=== PATIENT | female | born 1990 | race Caucasian/White ===

== ENCOUNTER 2023-02-18 09:14 | Emergency (ER) | payer MEDICARE, OTHER, MEDICAID, SELFPAY ==
--- NOTE | ~2023-02-18 | CT_ITS ---
EXAMINATION: CT ABDOMEN AND PELVIS WITH CONTRAST CLINICAL INFORMATION: Left lower quadrant pain with bloody stools COMPARISON: None available. TECHNIQUE: Multidetector volumetric images were obtained from the superior aspect of the liver through the pubic symphysis following administration 85 mL of Omnipaque 350 intravenous contrast. Sagittal and coronal reformatted images were obtained on the technologist's workstation. Oral contrast: No This CT examination was performed using dose optimization techniques as appropriate, variously including the following: *Automated exposure control *Adjustment of mA and/or kV according to patient size (this includes techniques or standardized protocols for targeted exams where dose is matched to indication/reason for exam; i.e. extremities or head) *Use of iterative reconstruction technique DLP: 716 mGy-cm FINDINGS: LUNG BASES: Bibasilar atelectasis is present LIVER, GALLBLADDER, AND BILIARY TREE: The liver is normal in size, shape, and attenuation. No focal hepatic lesion or biliary ductal dilatation is present. The gallbladder is unremarkable with no evidence of radiopaque gallstones, gallbladder wall thickening, or obvious pericholecystic inflammatory changes. PANCREAS: Unremarkable. SPLEEN: Unremarkable. ADRENAL GLANDS: Unremarkable. KIDNEYS AND URETERS: The kidneys are normal in size, shape, and attenuation. No hydronephrosis, hydroureter, or calculi seen. No perinephric stranding. BLADDER: Unremarkable. GASTROINTESTINAL TRACT: There is thickening and slightly increased enhancement of the colonic mucosa most prominent in the descending and sigmoid colon colon. Multiple small pericolonic lymph nodes are present in the mesentery around the colon the largest measuring only about 6 mm in short axis dimension. No significant diverticular disease is present. The small bowel is unremarkable. The appendix appears normal. ABDOMINAL WALL: No significant hernia is appreciated. LYMPH NODES: Normal. VASCULAR: Unremarkable. PELVIC VISCERA: An anteverted uterus is present. A large calcified mass is present in the right adnexa measuring 3.2 x 2.8 x 3.4 cm that is related to the periphery. The left ovary appears normal (3:66). OSSEOUS STRUCTURES: Unremarkable. CT/CT abdomen pelvis w IV con IMPRESSION: 1. Thickening and increased enhancement of the colonic mucosa most prominent in the descending and sigmoid colon with multiple small surrounding pericolonic lymph nodes. Findings are suggestive of colitis. 2. Large calcified mass in the right adnexa. This could be a calcified ovarian mass. Elective pelvic transabdominal and endovaginal ultrasound could be performed for further evaluation to verify that this is indeed ovarian. Fleischner guidelines were followed.
[2023-02-18 09:25] VITALS: BP 120/72; PULSE 111; RESP 18; TEMP 37.1; O2SAT 98; BMI 38.0
--- NOTE | 2023-02-18 10:28 | ED.ABDPAIN ---
HPI - Abdominal Pain General Chief Complaint: Abdominal Pain Stated Complaint: abd pain/ hemorrhoids Time Seen by Provider: 02/18/23 09:48 Source: patient Mode of arrival: ambulatory Limitations: no limitations History of Present Illness HPI narrative: 32 yo female with no sig PMH notes increasing LLQ pain x 3 days with some loose bloody stools and hemorrhoids that have been bothering her x 1 week, tried topical therapy without relief. No hx of inflammatory bowel disease or diverticulitis. No hx of bloody stools. Notes blood is on toilet paper and stool. She denies travel/abx use. No fevers. MD elicited complaint: abdominal pain Pertinent past history: none Onset (ago): day(s) (3) Pain Consistency: intermittent Location: LLQ Severity: moderate Quality: cramping Radiation: none Migration to: no migration Exacerbating factors: nothing Relieving factors: nothing Associated symptoms: diarrhea and hematochezia Related Data Previous Rx's Medication Instructions Recorded morphine 15 mg immediate release 15 mg PO TID PRN pain #10 tabs 02/18/23 tablet ondansetron 4 mg disintegrating 4 mg PO Q8H PRN nausea and 02/18/23 tablet vomiting #20 tabs Allergies Allergy/AdvReac Type Severity Reaction Status Date / Time bismuth subsalicylate AdvReac Vomiting Verified 02/18/23 09:25 [From Pepto-Bismol] seafood AdvReac Vomiting Verified 02/18/23 09:25 Review of Systems Review of Systems Constitutional : No Weight loss, No Fever, No Chills ENT/Mouth : No sore throat, No Rhinorrhea Eyes: No Swelling, No Redness Cardiovascular : No Chest Pain, No SOB, NoEdema Respiratory : No Cough, No Sputum, No Wheezing Gastrointestinal : no Nausea, no Vomiting, positive Diarrhea, positive abdominal Pain, pos Hematochezia, No Melena Genitourinary : No Dysuria, No Urinary Frequency, No Hematuria, No Urgency Musculoskeletal : No joint pain, No Myalgias, No Joint Swelling Skin : No Skin Lesions, No rash Neuro : No Weakness, No Numbness, No Dizziness, No Headache Psych : No Anxiety/Panic, No Depression Heme/Lymph: No Bruising, No Lymphadenopathy Endocrine : No Polyuria, No Polydipsia All other systems reviewed and are negative. [facility] Past Medical History Attestation statement: The following information was validated with the patient. Medical History No pertinent past medical history Social History (Updated 02/18/23 @ 10:30 by Kamille Medina DO) Patient Tobacco Use Status: Never used Tobacco Advance Directives: Yes Advance Directives Information Provided: Yes Advance Directives on File: No Physical Exam ED Vital Signs: Vital Signs - 24 hr 02/18/23 09:25 Temperature 98.8 F Pulse Rate 111 H Respiratory Rate 18 Blood Pressure 120/72 Pulse Oximetry 98 Oxygen Delivery Method Room Air BMI result Body Mass Index 38.0 Appearance: Alert. Oriented X3. No acute distress. Eyes: Pupils equal, round and reactive to light. ENT: Pharynx normal. Neck: Normal inspection. Neck supple. CVS: Normal heart rate and rhythm. Pulses normal. Respiratory: No respiratory distress. Breath sounds normal. Abdomen: Soft and mild LLQ pain no rebound Rectal: small nonthrombosed non bleeding hemorrhoid Skin: Skin warm and dry. Normal skin color. Normal skin turgor. Extremities: No lower extremity edema. No calf ttp Neuro: Oriented X 3. No motor deficit. No sensory deficit. Course Course Course Narrative: + colitis but no fevers, no WBC count, H/H stable will hold off antibiotics and DC home with bland diet and precautions no indication for antibiotics in immune competent patient Medical Decision Making Medical Decision Making [facility] Narrative: 32 yo female otherwise healthy here with LLQ pain and bloody stools rectal pain at this time hemorrhoids are not impressive no travel or abx use. No hx of infl bowel disease in her or family. At this time labs, CT scan for colitis/diverticulitis. Differential Diagnosis Differential Diagnoses: The differential diagnosis associated with the presentation includes colitis, diverticulitis Admission/Observation Consideration of admission/observation: Escalation of care including admission/observation considered tolerating PO, no bleeding here H/H stable, CT scan colitis Lab Data [facility] Lab Attestation statement: I reviewed the patient's lab results. 02/18/23 10:56 02/18/23 10:56 Labs: Lab Results 02/18/23 Range/Units 10:56 WBC 9.6 (4.8-10.8) X10*3/uL RBC 3.69 L (4.20-5.50) X10*6/uL Hgb 11.0 L (12.0-16.0) g/dl Hct 33.4 L (37.0-47.0) % MCV 90.5 (80.0-98.0) fL MCH 29.8 (27.0-33.0) pg MCHC 32.9 (31.0-35.0) g/dl RDW 13.4 (11.0-16.0) % Plt Count 231 (160-400) X10*3/uL MPV 10.2 (9.4-12.3) fL Immature Gran % (Auto) 0.5 H (0.0-0.4) % Neut % (Auto) 61.9 (45-73) % Lymph % (Auto) 20.6 (20-40) % [place] % (Auto) 9.7 (2-11) % Eos % (Auto) 6.3 H (0-4) % Baso % (Auto) 1.0 (0-2) % Lymph # (Auto) 2.0 (1.2-4.9) X10*3/uL [place] # (Auto) 0.9 (0.1-1.2) X10*3/uL Eos # (Auto) 0.6 H (0.0-0.4) X10*3/uL Baso # (Auto) 0.1 (0.0-0.2) X10*3/uL Abs Immat Gran (auto) 0.05 H (0.00-0.03) X10*3/uL Absolute Neuts (auto) 5.9 (2.0-8.3) x10*3/uL Absolute Nucleated RBC 0.000 (0.0-0.012) X10*3/uL Nucleated RBC % (auto) 0.0 (0.0-0.2) /100WBC Sodium 139 (135-145) mmol/L Potassium 5.5 H (3.3-5.1) mmol/L Chloride 109 H (96-108) mmol/L Carbon Dioxide 22 (22-29) mmol/L Anion Gap 14 (12-20) BUN 7 L (9-16) mg/dL Creatinine 0.79 (0.5-1.4) mg/dL Estim Creat Clear Calc 107.0 Estimated GFR > 60 Random Glucose 104 (60-115) mg/dL Calcium 8.5 (8.4-10.2) mg/dL Magnesium 2.3 (1.6-2.6) mg/dL Total Bilirubin 0.2 (0.0-1.0) mg/dL Direct Bilirubin < 0.2 (0.0-0.5) mg/dL AST 117 H (5-31) U/L ALT 169 H (0-31) U/L Alkaline Phosphatase 84 (39-117) U/L Total Protein 7.6 (6.5-8.0) g/dL Albumin 3.6 (3.5-5.0) g/dL Lipase 31 (8-78) U/L Beta HCG, Quant < 2 mIU/mL Independent Interpretation I performed an independent interpretation of an: CT Scan (colitis) Radiology Impression Discussion of test interpretation with radiology: I have reviewed the radiologist's reading. Independent Historian Clinical information obtained from an independent historian. History obtained from or confirmed by: Spouse Prescription Management I considered prescription management with: Pain Medication and Other Medications Administered Discontinued Medications Generic Name Dose Route Start Last Admin Trade Name Freq PRN Reason Stop Dose Admin Sodium Chloride 1,000 mls @ 999 mls/hr 02/18/23 10:30 02/18/23 13:49 Ns IV 02/18/23 11:30 Infused .Q1H1M YESSY Infusion Iohexol 85 ml 02/18/23 12:23 02/18/23 12:23 Iohexol 350 Mg/Ml 100 Ml Infus..Btl IV 02/18/23 12:24 85 ml ONCE ONE Administration Discharge Plan Discharge Clinical Impression: Colitis Patient Disposition: Home, Self-Care Instructions: Colitis (ED) Additional Instructions: bland clear liquid diet for 48 hours advance slowly then for 2 days, return for worsening pain, fevers, vomiting, inability to eat or drink, increased bleeding. this should resolve on its own. NO ASPIRIN repeat blood count (CBC and liver enzymes) with your doctor on tuesday your liver enzymes were very mildly bumped - avoid alcohol and tylenol - should be repeated on Tuesday you will need to see a GI doctor please call the number listed below for an appointment Prescriptions: New morphine 15 mg tablet 15 mg PO TID PRN (Reason: pain) Qty: 10 0RF Rx Instructions: partial fill okay; Partial Fill upon patient request. ondansetron 4 mg tablet,disintegrating 4 mg PO Q8H PRN (Reason: nausea and vomiting) Qty: 20 0RF Referrals: Denys Tamayo MD [Physician] - Interventions: ED Discharge Assessment Last Done: 02/18/23 13:55 Discharge Date/Time: 02/18/23 13:56
[2023-02-18 11:00] LABS: MANUAL DIFF FLAG NO
[2023-02-18 11:02] LABS: Basophils Absolute Auto 0.1 X10*3/uL (0.0-0.2); Eosinophils Absolute Auto 0.6 X10*3/uL (0.0-0.4); Eosinophils Percent Auto 6.3 % (0-4); Hematocrit 33.4 % (37.0-47.0); Imm Gran Abs Auto 0.05 X10*3/uL (0.00-0.03); Imm Gran Pct Auto 0.5 % (0.0-0.4); Lymphocytes Percent Auto 20.6 % (20-40); Mean Corpuscular HGB Conc 32.9 g/dl (31.0-35.0); Mean Corpuscular Hemoglobin 29.8 pg (27.0-33.0); Mean Corpuscular Volume 90.5 fL (80.0-98.0); Mean Platelet Volume 10.2 fL (9.4-12.3); Monocytes Absolute Auto 0.9 X10*3/uL (0.1-1.2); Monocytes Percent Auto 9.7 % (2-11); Neutrophils Absolute Auto 5.9 x10*3/uL (2.0-8.3); Neutrophils Percent Auto 61.9 % (45-73); Platelet Count 231 X10*3/uL (160-400); Red Blood Count 3.69 X10*6/uL (4.20-5.50); Red Cell Distribution Width 13.4 % (11.0-16.0); White Blood Count 9.6 X10*3/uL (4.8-10.8)
[2023-02-18] MEDS: 0.9 % Sodium Chloride 1,000 ML 999 ML IV (11:10)
[2023-02-18 11:24] LABS: Alanine Aminotransferase 169 U/L (0-31); Albumin Level 3.6 g/dL (3.5-5.0); Alkaline Phosphatase 84 U/L (39-117); Anion Gap 14 (12-20); Aspartate Amino Transferase 117 U/L (5-31); Bilirubin Direct < 0.2 mg/dL (0.0-0.5); Bilirubin Total 0.2 mg/dL (0.0-1.0); Blood Urea Nitrogen 7 mg/dL (9-16); Calcium 8.5 mg/dL (8.4-10.2); Carbon Dioxide 22 mmol/L (22-29); Chloride 109 mmol/L (96-108); Estimated Glomerular Filt Rate > 60; Glucose Random 104 mg/dL (60-115); Lipase 31 U/L (8-78); Magnesium 2.3 mg/dL (1.6-2.6); Potassium 5.5 mmol/L (3.3-5.1); Sodium 139 mmol/L (135-145); Total Protein 7.6 g/dL (6.5-8.0)
[2023-02-18 11:27] LABS: HCG Quantitative < 2 mIU/mL
[2023-02-18] MEDS: iohexoL 350 MG/ML 100 ML INFUS..BTL 85 ML IV (12:23)
== END 2023-02-18 13:56 | disposition home or self-care (01) ==
PROVIDERS: Emergency Provider Emergency Medicine; PCP Nurse Practitioner Family
DX: K52.9 Noninfective gastroenteritis and colitis, unspecified (principal); R10.32 Left lower quadrant pain; Z79.899 Other long term (current) drug therapy
CPT/HCPCS: 36415; 74177; 80048; 80076; 83690; 83735; 84702; 85025; 96360; 96361; 99283; 99284; Q9967

== ENCOUNTER 2023-03-12 12:49 | Emergency (ER) | payer MEDICARE, MEDICAID, SELFPAY ==
[2023-03-12 13:07] VITALS: BP 115/70; PULSE 98; RESP 18; TEMP 36.2; O2SAT 97; BMI 31.9
--- NOTE | 2023-03-12 14:30 | ED.GENADULT ---
HPI - General Adult General Chief complaint: Abdominal Pain Stated complaint: multiple issues Time Seen by Provider: 03/12/23 16:02 Source: patient, RN notes reviewed and old records reviewed Mode of arrival: ambulatory History of Present Illness HPI narrative: 33-year-old female with a past medical history of colitis diagnosed in our ED on 02/18 presenting to the ED complaining of continued abdominal pain worsening over the past 3 days with nausea and intermittent pink/bloody stool. Does report history of hemorrhoids. States has been using p.o. morphine once daily over the past 3-5 days and is concerned she is overusing the pain medication. Denies fever/chills, vomiting, diarrhea/constipation, dysuria/hematuria Related Data Previous Rx's Medication Instructions Recorded morphine 15 mg immediate release 15 mg PO TID PRN pain #10 tabs 02/18/23 tablet ondansetron 4 mg disintegrating 4 mg PO Q8H PRN nausea and 02/18/23 tablet vomiting #20 tabs acetaminophen 500 mg tablet 500 mg PO Q6H PRN fever or pain 03/12/23 (Tylenol Extra Strength) #14 tabs Allergies Allergy/AdvReac Type Severity Reaction Status Date / Time bismuth subsalicylate AdvReac Vomiting Verified 03/12/23 13:07 [From Pepto-Bismol] seafood AdvReac Vomiting Verified 03/12/23 13:07 Review of Systems Review of Systems: Constitutional: No Fever, No Chills ENT/Mouth: No Ear Pain, No Nasal Congestion, No sore throat, No Rhinorrhea, No Swallowing Difficulty Cardiovascular: No Chest Pain, No SOB Respiratory: No Cough, No Sputum, No Wheezing Gastrointestinal: + Nausea, No Vomiting, No Diarrhea, No Constipation, + Abdominal pain, +brbpr Genitourinary: No Dysuria, No Hematuria, No Urinary Incontinence/retention, No Flank Pain Musculoskeletal: No joint pain, No Myalgias, No Joint Swelling Skin: No Skin Lesions, No rash Neuro: No Weakness Yes all other systems are reviewed and are negative Constitutional: Constitutional: Reports as per [facility] Past Medical History Attestation statement: The following information was validated with the patient. Source: old records reviewed Medical History No pertinent past medical history Social History Social History Patient Tobacco Use Status: Never used Tobacco Smoked in Last 30 Days: No Use of substances other than those prescribed or required for medical reasons: No Advance Directives: No Advance Directives Information Provided: No Physical Exam ED Vital Signs: Vital Signs - 24 hr 03/12/23 13:07 03/12/23 15:09 03/12/23 15:56 Temperature 97.1 F 97.8 F Pulse Rate 98 99 Respiratory Rate 18 16 16 Blood Pressure 115/70 103/70 Pulse Oximetry 97 100 99 Oxygen Delivery Method Room Air Room Air Room Air BMI result Body Mass Index 31.9 Const General: cooperative, healthy appearing and no acute distress Orientation/consciousness: patient oriented x3 Limitations: no limitations HENMT Head: Yes normal to inspection and Yes atraumatic Ears: hearing grossly normal bilaterally General nose exam: Normal external nose present Face and sinus: Yes normal facial exam Eyes General: appearance normal, both eyes and all related structures EOM: EOMs intact bilaterally Neck Neck: Yes normal visual inspection and Yes no meningeal signs Resp Effort & Inspection: normal respiratory effort and no respiratory distress Auscultation: clear to auscultation bilaterally Cardio Rate: regular rate Heart sounds: S1 normal heart sound present and S2 normal heart sound present GI Inspection: Yes normal to inspection Palpation (GI): Soft to palpation, nontender, no guarding and not rigid Rectal Exam - Female: External hemorrhoid(s) present (Without bleeding or thrombosis) General: Yes no CVA tenderness Back/Spine/Pelvis Back: no CVA tenderness Skin Rashes: no rashes Wounds: no wounds Neuro General: patient oriented x3, tone normal and no meningeal signs Cranial nerves: Yes CN's II-XII intact bilaterally Gait exam (Neuro): Normal gait present Extrem General: Yes normal to inspection Course Course Course Narrative: RME- 33 year old female presents for evaluation of abdominal pain, diarrhea. She reports that she occasionally sees blood in her stool. Plan for labs, UA -labs and CT reviewed from 02/18 which were suggestive of colitis. Large calcified right adnexal mass also noted. This was re-discussed with patient with recommended close OBGYN follow-up. >> no need for repeat imaging at this time as abdomen is soft and nontender -mild leukocytosis 12.3. H&H stable. -improvement in AST/ALT. UA not infected. -occult stool positive. No evidence of active bleeding > H&H stable. Likely due to hemorrhoids/known colitis. Patient is stable for outpatient GI follow-up/outpatient colonoscopy. >1719--patient tolerating p.o. in the ED without difficulty. Resting comfortably. Asymptomatic at present. Discussed need follow-up with GI. States follow-up on April 05 Medications Administered Discontinued Medications Generic Name Dose Route Start Last Admin Trade Name Nahomy PRN Reason Stop Dose Admin Ondansetron HCl 4 mg 03/12/23 16:20 03/12/23 16:24 Ondansetron Odt 4 Mg Tab.Rapdis TRANSLINGU 03/12/23 16:21 4 mg ONCE ONE Administration Medical Decision Making Medical Decision Making [facility] Narrative: 33-year-old female with a past medical history of colitis diagnosed in our ED on 02/18 presenting to the ED complaining of continued abdominal pain worsening over the past 3 days with nausea and intermittent pink/bloody stool. On exam vital signs stable, NAD, nontoxic abdomen soft/nontender at present. Patient denies pain at this time. Concern for improving colitis vs hemorrhoidal bleeding vs GI bleed. Rule out anemia. Lower suspicion for ischemic bowel, abscess formation, appendicitis/diverticulitis with nontender abdomen Plan: Labs, UA, occult stool Please refer to course for remaining clinical decision making, interpretation of labs/imaging results, and discussions with consultants and/or family members. Differential Diagnosis Differential Diagnoses: The differential diagnosis associated with the presentation includes As above Admission/Observation Consideration of admission/observation: Escalation of care including admission/observation considered Lab Data [facility] Lab Attestation statement: I reviewed the patient's lab results. 03/12/23 14:57 03/12/23 14:57 Labs: Lab Results 03/12/23 03/12/23 03/12/23 Range/Units 14:57 15:48 16:18 WBC 12.3 H (4.8-10.8) X10*3/uL RBC 3.98 L (4.20-5.50) X10*6/uL Hgb 11.4 L (12.0-16.0) g/dl Hct 35.2 L (37.0-47.0) % MCV 88.4 (80.0-98.0) fL MCH 28.6 (27.0-33.0) pg MCHC 32.4 (31.0-35.0) g/dl RDW 13.3 (11.0-16.0) % Plt Count 350 D (160-400) X10*3/uL MPV 9.7 (9.4-12.3) fL Immature Gran % (Auto) 0.5 H (0.0-0.4) % Neut % (Auto) 59.6 (45-73) % Lymph % (Auto) 24.5 (20-40) % [place] % (Auto) 9.6 (2-11) % Eos % (Auto) 4.9 H (0-4) % Baso % (Auto) 0.9 (0-2) % Lymph # (Auto) 3.0 (1.2-4.9) X10*3/uL [place] # (Auto) 1.2 (0.1-1.2) X10*3/uL Eos # (Auto) 0.6 H (0.0-0.4) X10*3/uL Baso # (Auto) 0.1 (0.0-0.2) X10*3/uL Abs Immat Gran (auto) 0.06 H (0.00-0.03) X10*3/uL Absolute Neuts (auto) 7.3 (2.0-8.3) x10*3/uL Absolute Nucleated RBC 0.000 (0.0-0.012) X10*3/uL Nucleated RBC % (auto) 0.0 (0.0-0.2) /100WBC Sodium 139 (135-145) mmol/L Potassium 3.5 D (3.3-5.1) mmol/L Chloride 108 (96-108) mmol/L Carbon Dioxide 21 L (22-29) mmol/L Anion Gap 14 (12-20) BUN 8 L (9-16) mg/dL Creatinine 0.71 (0.5-1.4) mg/dL Estim Creat Clear Calc 129.4 Estimated GFR > 60 Random Glucose 97 (60-115) mg/dL Calcium 8.4 (8.4-10.2) mg/dL Magnesium 2.1 (1.6-2.6) mg/dL Total Bilirubin 0.1 (0.0-1.0) mg/dL AST 59 H (5-31) U/L ALT 73 H (0-31) U/L Alkaline Phosphatase 126 H (39-117) U/L Total Protein 7.2 (6.5-8.0) g/dL Albumin 3.4 L (3.5-5.0) g/dL Lipase 25 (8-78) U/L Beta HCG, Quant < 2 mIU/mL Urine Color Dark Yellow Urine Appearance Cloudy Urine pH 6.0 (5.0-9.0) Ur Specific [place] >= 1.030 H (1.005-1.025) Urine Protein 30 (1+) H (Neg-Trace) mg/dL Urine Glucose (UA) Negative (Negative) mg/dL Urine Ketones Trace (Negative) mg/dL Urine Blood Negative (Negative) Urine Nitrite Negative (Negative) Ur Leukocyte Esterase Trace H (Negative) Urine RBC 0-2 (0-2) /HPF Urine WBC 0-5 (0-5) /HPF Ur Squamous Epith Cells 11-20 (0-2) /HPF Urine Bacteria 2+ (None Seen) Hyaline Casts 0-2 (0-2) /LPF Stool Occult Blood POSITIVE (NEGATIVE) Radiology Impression Discussion of test interpretation with radiology: I have reviewed the radiologist's reading. External Record Review External record reviewed: Inpatient record, Office record, Outpatient record, Prior outpatient labs, Prior outpatient radiology, Primary care record and Outside ED record Tests considered The following testing was considered but not selected: As above Prescription Management I considered prescription management with: Pain Medication Discharge Plan Discharge Clinical Impression: Abdominal pain Patient Disposition: Home, Self-Care Instructions: Abdominal Pain (ED) Additional Instructions: Your liver enzymes are improved from her prior visit. Your stool is positive for blood, this is likely from her colitis/hemorrhoids however you need to follow-up with GI outpatient. If bleeding persists or worsens you develop persistent or worsening abdominal pain, persistent nausea/vomiting, lightheadedness or dizziness return to the ED immediately Your CT scan from 02/18/2023 showed a large mass in her right adnexa, you need to have close follow-up with her OBGYN for further evaluation of this Continue taking Zofran as needed. You should also take Tylenol avoid aspirin Prescriptions: New acetaminophen [Tylenol Extra Strength] 500 mg tablet 500 mg PO Q6H PRN (Reason: fever or pain) Qty: 14 0RF No Action morphine 15 mg tablet 15 mg PO TID PRN (Reason: pain) Qty: 10 0RF Rx Instructions: partial fill okay; Partial Fill upon patient request. ondansetron 4 mg tablet,disintegrating 4 mg PO Q8H PRN (Reason: nausea and vomiting) Qty: 20 0RF Referrals: [facility] [Provider Group] [facility] [place] [facility] [Provider Group] Akosua Leija NP [Primary Care Provider] -
[2023-03-12 15:02] LABS: MANUAL DIFF FLAG NO
[2023-03-12 15:03] LABS: Basophils Absolute Auto 0.1 X10*3/uL (0.0-0.2); Basophils Percent Auto 0.9 % (0-2); Eosinophils Absolute Auto 0.6 X10*3/uL (0.0-0.4); Eosinophils Percent Auto 4.9 % (0-4); Hematocrit 35.2 % (37.0-47.0); Hemoglobin 11.4 g/dl (12.0-16.0); Imm Gran Abs Auto 0.06 X10*3/uL (0.00-0.03); Imm Gran Pct Auto 0.5 % (0.0-0.4); Lymphocytes Percent Auto 24.5 % (20-40); Mean Corpuscular HGB Conc 32.4 g/dl (31.0-35.0); Mean Corpuscular Hemoglobin 28.6 pg (27.0-33.0); Mean Corpuscular Volume 88.4 fL (80.0-98.0); Mean Platelet Volume 9.7 fL (9.4-12.3); Monocytes Absolute Auto 1.2 X10*3/uL (0.1-1.2); Monocytes Percent Auto 9.6 % (2-11); Neutrophils Absolute Auto 7.3 x10*3/uL (2.0-8.3); Neutrophils Percent Auto 59.6 % (45-73); Platelet Count 350 X10*3/uL (160-400); Red Blood Count 3.98 X10*6/uL (4.20-5.50); Red Cell Distribution Width 13.3 % (11.0-16.0); White Blood Count 12.3 X10*3/uL (4.8-10.8)
[2023-03-12 15:09] VITALS: BP 103/70; PULSE 99; RESP 16; TEMP 36.6; O2SAT 100
--- NOTE | 2023-03-12 15:18 | PC.NURSE ---
Pt is a&ox4 coming in with lower right quadrant and nausea x3 days. Pt states she was diagnosed with colitis [id number] ago. abd soft and tender. skin pwd. respiraitons even and unlabroed. Pt moving all extremities independently.
[2023-03-12 15:21] LABS: Alanine Aminotransferase 73 U/L (0-31); Albumin Level 3.4 g/dL (3.5-5.0); Alkaline Phosphatase 126 U/L (39-117); Anion Gap 14 (12-20); Aspartate Amino Transferase 59 U/L (5-31); Bilirubin Total 0.1 mg/dL (0.0-1.0); Blood Urea Nitrogen 8 mg/dL (9-16); Calcium 8.4 mg/dL (8.4-10.2); Carbon Dioxide 21 mmol/L (22-29); Chloride 108 mmol/L (96-108); Creatinine Clr Calc Pharmacy 129.4; Estimated Glomerular Filt Rate > 60; Glucose Random 97 mg/dL (60-115); Lipase 25 U/L (8-78); Potassium 3.5 mmol/L (3.3-5.1); Sodium 139 mmol/L (135-145); Total Protein 7.2 g/dL (6.5-8.0)
[2023-03-12 15:54] LABS: Appearance Urine Cloudy; Color Urine Dark Yellow; Glucose Urine UA Negative (Negative); Leukocyte Esterase Urine Trace (Negative); Nitrite Urine Negative (Negative); Specific Gravity - Urine >= 1.030 (1.005-1.025); UMIC TRIGGER UACC YES; Urine Blood Negative (Negative); Urine Ketones Trace mg/dL (Negative); Urine Protein 30 (1+) mg/dL (Neg-Trace)
[2023-03-12 15:56] VITALS: RESP 16; O2SAT 99
[2023-03-12 15:59] LABS: Bacteria Urine 2+ (None Seen); Hyaline Casts Urine 0-2 /LPF (0-2); RBC Urine 0-2 /HPF (0-2); WBC Urine 0-5 /HPF (0-5)
[2023-03-12 16:22] LABS: OBS Int Ctl Valid YES; OBS1 POSITIVE (NEGATIVE)
[2023-03-12] MEDS: Ondansetron ODT 4 MG TAB.RAPDIS TRANSLINGU (16:24)
[2023-03-12 16:49] LABS: HCG Quantitative < 2 mIU/mL; Magnesium 2.1 mg/dL (1.6-2.6)
[2023-03-12] MEDS: Ketorolac Tromethamine 30 MG/ML VIAL IM (17:31)
[2023-03-12 17:32] VITALS: BP 110/68; PULSE 90; RESP 18; O2SAT 99
== END 2023-03-12 17:44 | disposition home or self-care (01) ==
PROVIDERS: Physician Assistant; Emergency Provider Emergency Medicine; PCP Nurse Practitioner Family
DX: R10.9 Unspecified abdominal pain (principal); K64.4 Residual hemorrhoidal skin tags; R19.7 Diarrhea, unspecified; D72.829 Elevated white blood cell count, unspecified
CPT/HCPCS: 36415; 80053; 81001; 82272; 83690; 83735; 84702; 85025; 96372; 99284; J1885

== ENCOUNTER 2023-04-05 10:53 | Outpatient (REF) | payer MEDICARE, MEDICAID, SELFPAY ==
[2023-04-05 14:32] LABS: Alanine Aminotransferase 36 U/L (0-31); Albumin Level 3.9 g/dL (3.5-5.0); Alkaline Phosphatase 103 U/L (39-117); Aspartate Amino Transferase 28 U/L (5-31); Bilirubin Direct < 0.2 mg/dL (0.0-0.5); Bilirubin Total 0.2 mg/dL (0.0-1.0); C Reactive Protein 0.42 mg/dL (< or = 0.50); Gamma Glutamyl Transpeptidase 65 U/L (7-33); Total Protein 7.7 g/dL (6.5-8.0)
[2023-04-05 14:48] LABS: Ferritin 68 ng/mL (10-122); TSH reflex Free T4 3.44 uIU/mL (0.32-4.0)
[2023-04-06 04:11] LABS: HBS Num1 3.62 mIU/mL (0-7.99); HBc Num1 0.07 S/CO (0.00-0.79); HBsAGNum1 0.22 S/CO (0.00-0.99); HIV AB/AG Nonreactive (Nonreactive); HIV Num 1 0.05 S/CO (0.00-0.99); Hepatitis A Antibody IgM 0.14 Index (0-0.79); Hepatitis B Core Antibody Nonreactive (Nonreactive); Hepatitis B Surface Antigen Negative (Negative); ~HepC Num1 0.09 S/CO (0.00-0.79); ~Hepatitis A Antibody IgM Nonreactive (Nonreactive); ~Hepatitis B Surface Antibody NONREACTIVE (Nonreactive); ~Hepatitis C Antibody Nonreactive (Nonreactive)
[2023-04-07 12:54] LABS: Alpha Fetoprotein 3.1 ng/mL
[2023-04-07 15:29] LABS: Gliadin Deamidated IgA Ab <1.0 U/mL; Gliadin Deamidated IgG Ab <1.0 U/mL; Transglutaminase Ab IgG <1.0 U/mL; Transglutaminase IgA <1.0 U/mL
[2023-04-08 15:39] LABS: Mitochondrial Antibodies NEGATIVE (NEGATIVE)
[2023-04-09 09:13] LABS: Anti Nuclear Antibody Screen NEGATIVE (NEGATIVE)
[2023-04-10 23:25] LABS: Smooth Muscle Antibody <20 U (<20)
== END 2023-04-05 10:54 | disposition home or self-care (01) ==
LOC: HO.LAB 10:53
PROVIDERS: PCP Nurse Practitioner Family; Visit Provider Nurse Practitioner
DX: R19.7 Diarrhea, unspecified (principal); R74.01 Elevation of levels of liver transaminase levels
CPT/HCPCS: 36415; 80076; 81479; 82105; 82397; 82728; 82977; 83520; 84443; 86015; 86038; 86140; 86258; 86364; 86381; 86704; 86706; 86709; 86803; 87340; 87389; 88346; 88350; 99202

== ENCOUNTER 2023-04-05 10:53 | Outpatient (AMB) | payer MEDICARE, MEDICAID, SELFPAY ==
--- NOTE | 2023-04-05 10:57 | MHC.OFFVIS ---
Intake Vital Signs 04/05/23 10:58 Height 5 ft 1 in Weight 189 lb BMI 35.7 BP 95/53 L Blood Pressure Location Rt brachial Position Sitting Pulse 84 Intake Visit Reasons: Colitis Intake Note: Patient presents to in office visit today as a new patient for colitis. CC: Patient seen in the ED on 02/18/23 and diagnosed with colitis. She returned to ED on 03/12/23 complaining of continued abdominal pain worsening over the past 3 days with nausea and intermittent pink/bloody stool. Past history of hemorrhoids. Stated she was using using p.o. morphine once daily over the past 3-5 days before presentation to ED. Patient reports she continues to have constipation but she has not seen any more bloody stools, and she d/c'd pain medications about 7 days ago. Supervisor Screen Printing Required: No Accompanied by: boyfriend Allergies bismuth subsalicylate [From Pepto-Bismol] Adverse Reaction (Verified 04/05/23 11:12) Vomiting seafood Adverse Reaction (Verified 04/05/23 11:12) Vomiting HPI Colitis HPI Details 33-year-old female here for initial evaluation of colitis. This was diagnosed in our emergency department but her primary care provider is Alonzo Padron of [facility] in [place]. 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 Lichen sclerosus of the vulva * SURGICAL HISTORY Ear surgery in childhood * ALLERGIES: NKDA * [facility] LABS: Laboratory Tests 02/18/23 03/12/23 03/12/23 10:56 14:57 14:57 WBC 12.3 H Hgb 11.4 L Hct 35.2 L MCV 88.4 MCH 28.6 Plt Count 350 D Estimated GFR > 60 Total Bilirubin 0.1 Direct Bilirubin < 0.2 AST 59 H ALT 73 H Alkaline Phosphata se 126 H Lipase Stool Occult Blood 03/12/23 03/12/23 14:57 16:18 WBC Hgb Hct MCV MCH Plt Count Estimated GFR Total Bilirubin Direct Bilirubin AST ALT Alkaline Phosphata se Lipase 25 Stool Occult Blood POSITIVE 03/14/2023: LABS FROM [facility] SHOW A MARKEDLY elevated stool calprotectin greater than 2000 and stool studies negative for any infection including C diff. REVIEW OF MOST RECENT ER NOTES Course Course Narrative: RME- 33 year old female presents for evaluation of abdominal pain, diarrhea. She reports that she occasionally sees blood in her stool. Plan for labs, UA -labs and CT reviewed from 02/18 which were suggestive of colitis. Large calcified right adnexal mass also noted. This was re-discussed with patient with recommended close OBGYN follow-up. >> no need for repeat imaging at this time as abdomen is soft and nontender -mild leukocytosis 12.3. H&H stable. -improvement in AST/ALT. UA not infected. -occult stool positive. No evidence of active bleeding > H&H stable. Likely due to hemorrhoids/known colitis. Patient is stable for outpatient GI follow-up/outpatient colonoscopy. >1719--patient tolerating p.o. in the ED without difficulty. Resting comfortably. Asymptomatic at present. Discussed need follow-up with GI. States follow-up on April 05 Clinical Impression: Abdominal pain Patient Disposition: Home, Self-Care Instructions: Abdominal Pain (ED) Additional Instructions: Your liver enzymes are improved from her prior visit. Your stool is positive for blood, this is likely from her colitis/hemorrhoids however you need to follow-up with GI outpatient. If bleeding persists or worsens you develop persistent or worsening abdominal pain, persistent nausea/vomiting, lightheadedness or dizziness return to the ED immediately Your CT scan from 02/18/2023 showed a large mass in her right adnexa, you need to have close follow-up with her OBGYN for further evaluation of this Continue taking Zofran as needed. You should also take Tylenol avoid aspirin CT ABDOMEN AND PELVIS 02/18/23 FINDINGS: LUNG BASES: Bibasilar atelectasis is present LIVER, GALLBLADDER, AND BILIARY TREE: The liver is normal in size, shape, and attenuation. No focal hepatic lesion or biliary ductal dilatation is present. The gallbladder is unremarkable with no evidence of radiopaque gallstones, gallbladder wall thickening, or obvious pericholecystic inflammatory changes. PANCREAS: Unremarkable. SPLEEN: Unremarkable. ADRENAL GLANDS: Unremarkable. KIDNEYS AND URETERS: The kidneys are normal in size, shape, and attenuation. No hydronephrosis, hydroureter, or calculi seen. No perinephric stranding. BLADDER: Unremarkable. GASTROINTESTINAL TRACT: There is thickening and slightly increased enhancement of the colonic mucosa most prominent in the descending and sigmoid colon colon. Multiple small pericolonic lymph nodes are present in the mesentery around the colon the largest measuring only about 6 mm in short axis dimension. No significant diverticular disease is present. The small bowel is unremarkable. The appendix appears normal. ABDOMINAL WALL: No significant hernia is appreciated. LYMPH NODES: Normal. VASCULAR: Unremarkable. PELVIC VISCERA: An anteverted uterus is present. A large calcified mass is present in the right adnexa measuring 3.2 x 2.8 x 3.4 cm that is related to the periphery. The left ovary appears normal (3:66). OSSEOUS STRUCTURES: Unremarkable. CT/CT abdomen pelvis w IV con IMPRESSION: 1. Thickening and increased enhancement of the colonic mucosa most prominent in the descending and sigmoid colon with multiple small surrounding pericolonic lymph nodes. Findings are suggestive of colitis. 2. Large calcified mass in the right adnexa. This could be a calcified ovarian mass. Elective pelvic transabdominal and endovaginal ultrasound could be performed for further evaluation to verify that this is indeed ovarian. TODAY'S VISIT She had a sudden on set of diarrhea after Thanksgi, and per her report my doctor told me I may have gluten problems, so I stopped eating this but then I started eating gluten free products but this made my stomach hurt more. She would have diarrhea about 3 times a day at times watery and at times liquid mixed wioth solid stools. At times she would see blood with BM's at times seeing blood clots and at times filling the bowel red occurring 2-3 times a week. She would have pain across the lower abdomen 10/10 when she presented to the ER, but was 5-6/10 prior to this. Prior to this her bowels were normal and formed. No known FHX of diarrheal syndromes or food allergies. She cannot identify any other diet changes except for the gluten free foods prior to the onset of symptoms, she also did not have any change in medications and there were no known similar symptoms in any family members or contacts. There is no family history of gallbladder disease known although she does find fatty foods also will cause cramping and upset her stomach. She only experiences nausea when she takes iron on empty stomach, she may have had some subjective chills with the onset of symptoms but no measured fever. She lost about 15 lb after the diagnosis of colitis because she was eating a very limited diet. She has been able to expand her diet better recently but still finds that she has trouble with things like green beans and lettuce. She has had a intermittent cough that started a little bit after the onset of her diarrheal symptoms. Now she is not having any pain and her BM's are soft stools. Were going to get celiac testing, a RAST allergen panel, and because of her marked transaminitis (which could be due to gluten enteropathy) were going to get general testing to make sure that there is no autoimmune or other problem affecting her liver. She also had a very high stool calprotectin but this is just a marker of inflammation in the bowel and is not necessarily indicative of IBD except in the face of other corroborating pieces of evidence. We did discuss the fact that we may progress to colonoscopy depending on how she does clinically and with the results of these tests show. We will get Affymax IBD panel to see if she has the genetic tendency towards this. ROV 3 weeks. REPLACED BY [facility] Medical History No pertinent past medical history Surgical History No pertinent past surgical history Social History Alcohol intake: never Patient Tobacco Use Status: Never used Tobacco Review of Systems Const Denies fatigue, Denies fever(s), Denies night sweats, Denies poor appetite and Reports weight loss ENT Reports Normal hearing present, Denies dental pain, Denies dysphagia, Denies hearing loss, Denies mouth pain, Denies odynophagia, Denies sore throat, Denies throat swelling, Denies tongue swelling and Reports other (Dentition adequate) Card Reports no additional complaints Resp Reports no additional complaints GI Denies abdominal pain, Denies melena, Denies bloating, Denies hematochezia, Denies constipation, Reports GI cramping, Denies dysphagia, Denies excessive flatus, Denies early satiety, Denies heartburn, Reports diarrhea, Denies nausea, Denies odynophagia, Denies vomiting and Denies hematemesis Skin/Breast Reports dry skin, Denies pruritus, Denies lesions, Denies rash and Denies jaundice Neuro Reports Normal hearing present and Denies Abnormal speech present Endo Denies fatigue Aller/Immun Denies throat swelling and Denies tongue swelling Physical Exam Vital Signs: Last Vital Signs Pulse 84 04/05/23 10:58 BP 95/53 L 04/05/23 10:58 BMI result Body Mass Index 35.7 Const General: cooperative, no acute distress, well developed and well groomed Nutritional Appearance: well nourished and obese Orientation/consciousness: oriented to person, oriented to place and oriented to time Limitations: No language barrier HEENT Head: Yes normocephalic and Yes atraumatic Eyes General: appearance normal, both eyes and all related structures Pupils: Equal, round and reactive pupils present Neck Neck: Yes normal visual inspection and Yes no lymphadenopathy Thyroid: Thyroid normal Resp Effort & Inspection: normal respiratory effort and able to speak in complete sentences Auscultation: clear to auscultation bilaterally Cardio Rate: regular rate Rhythm: regular rhythm Heart sounds: Normal, physiologic split S2 sound present Peripheral pulses: radial pulses present and posterior tibial pulses present GI Inspection: No distended, Yes Abdominal panniculus present, Yes obesity and Yes striae Palpation (GI): Soft to palpation, nontender, no guarding, not rigid and No hepatosplenomegaly present Percussion: Yes normal to percussion Auscultation: normal bowel sounds Rectal Exam - Female: deferred Skin General skin exam: no rashes or lesions noted, turgor normal, skin not dry, no jaundice, No spider nevi and no striae Rashes: no rashes Nails: normal Neuro General: oriented to person, oriented to place and oriented to time Cranial nerves: Yes Equal, round and reactive pupils present and Yes Normal hearing present Speech: No Abnormal speech present Extrem General: Yes normal to inspection, No clubbing, No cyanosis and No edema Psych Appearance: grossly normal and well kempt Mental Status: mental status grossly normal Speech and movement: Normal speech and movement present Affect: normal affect Attitude: cooperative Thought process: Normal thought process present and not confabulating Thought content: Normal thought content present Insight: Limited insight present (Psych) Judgement: Limited judgement present (Psych) Results Reviewed Results Reviewed: Laboratory Tests 02/18/23 03/12/23 03/12/23 10:56 14:57 14:57 WBC 12.3 H Hgb 11.4 L Hct 35.2 L MCV 88.4 MCH 28.6 Plt Count 350 D Estimated GFR > 60 Total Bilirubin 0.1 Direct Bilirubin < 0.2 AST 59 H ALT 73 H Alkaline Phosphatase 126 H Lipase Stool Occult Blood 03/12/23 03/12/23 14:57 16:18 WBC Hgb Hct MCV MCH Plt Count Estimated GFR Total Bilirubin Direct Bilirubin AST ALT Alkaline Phosphatase Lipase 25 Stool Occult Blood POSITIVE 03/14/2023: LABS FROM [facility] SHOW A MARKEDLY elevated stool calprotectin greater than 2000 and stool studies negative for any infection including C diff. REVIEW OF MOST RECENT ER NOTES Course Course Narrative: RMAida- 33 year old female presents for evaluation of abdominal pain, diarrhea. She reports that she occasionally sees blood in her stool. Plan for labs, UA -labs and CT reviewed from 02/18 which were suggestive of colitis. Large calcified right adnexal mass also noted. This was re-discussed with patient with recommended close OBGYN follow-up. >> no need for repeat imaging at this time as abdomen is soft and nontender -mild leukocytosis 12.3. H&H stable. -improvement in AST/ALT. UA not infected. -occult stool positive. No evidence of active bleeding > H&H stable. Likely due to hemorrhoids/known colitis. Patient is stable for outpatient GI follow-up/outpatient colonoscopy. >1719--patient tolerating p.o. in the ED without difficulty. Resting comfortably. Asymptomatic at present. Discussed need follow-up with GI. States follow-up on April 05 Clinical Impression: Abdominal pain Patient Disposition: Home, Self-Care Instructions: Abdominal Pain (ED) Additional Instructions: Your liver enzymes are improved from her prior visit. Your stool is positive for blood, this is likely from her colitis/hemorrhoids however you need to follow-up with GI outpatient. If bleeding persists or worsens you develop persistent or worsening abdominal pain, persistent nausea/vomiting, lightheadedness or dizziness return to the ED immediately Your CT scan from 02/18/2023 showed a large mass in her right adnexa, you need to have close follow-up with her OBGYN for further evaluation of this Continue taking Zofran as needed. You should also take Tylenol avoid aspirin CT ABDOMEN AND PELVIS 02/18/23 FINDINGS: LUNG BASES: Bibasilar atelectasis is present LIVER, GALLBLADDER, AND BILIARY TREE: The liver is normal in size, shape, and attenuation. No focal hepatic lesion or biliary ductal dilatation is present. The gallbladder is unremarkable with no evidence of radiopaque gallstones, gallbladder wall thickening, or obvious pericholecystic inflammatory changes. PANCREAS: Unremarkable. SPLEEN: Unremarkable. ADRENAL GLANDS: Unremarkable. KIDNEYS AND URETERS: The kidneys are normal in size, shape, and attenuation. No hydronephrosis, hydroureter, or calculi seen. No perinephric stranding. BLADDER: Unremarkable. GASTROINTESTINAL TRACT: There is thickening and slightly increased enhancement of the colonic mucosa most prominent in the descending and sigmoid colon colon. Multiple small pericolonic lymph nodes are present in the mesentery around the colon the largest measuring only about 6 mm in short axis dimension. No significant diverticular disease is present. The small bowel is unremarkable. The appendix appears normal. ABDOMINAL WALL: No significant hernia is appreciated. LYMPH NODES: Normal. VASCULAR: Unremarkable. PELVIC VISCERA: An anteverted uterus is present. A large calcified mass is present in the right adnexa measuring 3.2 x 2.8 x 3.4 cm that is related to the periphery. The left ovary appears normal (3:66). OSSEOUS STRUCTURES: Unremarkable. CT/CT abdomen pelvis w IV con IMPRESSION: 1. Thickening and increased enhancement of the colonic mucosa most prominent in the descending and sigmoid colon with multiple small surrounding pericolonic lymph nodes. Findings are suggestive of colitis. 2. Large calcified mass in the right adnexa. This could be a calcified ovarian mass. Elective pelvic transabdominal and endovaginal ultrasound could be performed for further evaluation to verify that this is indeed ovarian Assessment & Plan Assessment & Plan (1) Diarrhea: Code(s): R19.7 - Diarrhea, unspecified (2) Transaminitis: Code(s): R74.01 - Elevation of levels of liver transaminase levels Plan She had a sudden on set of diarrhea after Thanks, and per her report my doctor told me I may have gluten problems, so I stopped eating this but then I started eating gluten free products but this made my stomach hurt more. She would have diarrhea about 3 times a day at times watery and at times liquid mixed wioth solid stools. At times she would see blood with BM's at times seeing blood clots and at times filling the bowel red occurring 2-3 times a week. She would have pain across the lower abdomen 10/10 when she presented to the ER, but was 5-6/10 prior to this. Prior to this her bowels were normal and formed. No known FHX of diarrheal syndromes or food allergies. She cannot identify any other diet changes except for the gluten free foods prior to the onset of symptoms, she also did not have any change in medications and there were no known similar symptoms in any family members or contacts. There is no family history of gallbladder disease known although she does find fatty foods also will cause cramping and upset her stomach. She only experiences nausea when she takes iron on empty stomach, she may have had some subjective chills with the onset of symptoms but no measured fever. She lost about 15 lb after the diagnosis of colitis because she was eating a very limited diet. She has been able to expand her diet better recently but still finds that she has trouble with things like green beans and lettuce. She has had a intermittent cough that started a little bit after the onset of her diarrheal symptoms. Now she is not having any pain and her BM's are soft stools. Were going to get celiac testing, a RAST allergen panel, and because of her marked transaminitis (which could be due to gluten enteropathy) were going to get general testing to make sure that there is no autoimmune or other problem affecting her liver. She also had a very high stool calprotectin but this is just a marker of inflammation in the bowel and is not necessarily indicative of IBD except in the face of other corroborating pieces of evidence. We did discuss the fact that we may progress to colonoscopy depending on how she does clinically and with the results of these tests show. We will get Affymax IBD panel to see if she has the genetic tendency towards this. ROV 3 weeks. Orders: Orders Liver Panel Today R19.7 - Diarrhea, unspecified, R74.01 - Elevation of levels of liver transaminase levels Mitochondrial Antibody Today R19.7 - Diarrhea, unspecified, R74.01 - Elevation of levels of liver transaminase levels Rast Allergen Today R19.7 - Diarrhea, unspecified, R74.01 - Elevation of levels of liver transaminase levels Transglutaminase IgA Today R19.7 - Diarrhea, unspecified, R74.01 - Elevation of levels of liver transaminase levels Transglutaminase Ab IgG Today R19.7 - Diarrhea, unspecified, R74.01 - Elevation of levels of liver transaminase levels Hepatitis A,B,C Profile Today R19.7 - Diarrhea, unspecified, R74.01 - Elevation of levels of liver transaminase levels HIV Ab/Ag Today R19.7 - Diarrhea, unspecified, R74.01 - Elevation of levels of liver transaminase levels Gamma Glutamyl Transpeptidase Today R19.7 - Diarrhea, unspecified, R74.01 - Elevation of levels of liver transaminase levels Ferritin Today R19.7 - Diarrhea, unspecified, R74.01 - Elevation of levels of liver transaminase levels Gliadin Ab Panel Today R19.7 - Diarrhea, unspecified, R74.01 - Elevation of levels of liver transaminase levels Smooth Muscle Antibody Today R19.7 - Diarrhea, unspecified, R74.01 - Elevation of levels of liver transaminase levels TSH reflex Free T4 Today R19.7 - Diarrhea, unspecified, R74.01 - Elevation of levels of liver transaminase levels C Reactive Protein Today R19.7 - Diarrhea, unspecified, R74.01 - Elevation of levels of liver transaminase levels DENNIS Reflex Titer and Pattern Today R19.7 - Diarrhea, unspecified, R74.01 - Elevation of levels of liver transaminase levels Alpha Fetoprotein Today R19.7 - Diarrhea, unspecified, R74.01 - Elevation of levels of liver transaminase levels [facility] IBD SGI Today R19.7 - Diarrhea, unspecified Coding Level of Care Code New Pt Level 3 (97436) Diagnoses Diarrhea R19.7 Transaminitis R74.01
[2023-04-05 10:58] VITALS: BP 95/53; PULSE 84; BMI 35.7
== END 2023-04-05 13:00 | disposition home or self-care (01) ==
PROVIDERS: PCP Nurse Practitioner Family; Visit Provider Nurse Practitioner
DX: R19.7 Diarrhea, unspecified (principal); R74.01 Elevation of levels of liver transaminase levels
CPT/HCPCS: 99203

== ENCOUNTER 2023-05-20 15:03 | Outpatient (AMB) | payer MEDICARE, MEDICAID, SELFPAY ==
--- NOTE | 2023-05-20 15:14 | A.OFFVIS_ITS ---
Intake Vital Signs 05/20/23 15:21 Height 5 ft 1 in Weight 192 lb BMI 36.3 BP 118/62 Blood Pressure Location Lt brachial Position Sitting Pulse 88 Intake Visit Reasons: follow up Colitis Intake Note: Patient is seen in office for follow up visit, following colitis. 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 Accompanied by: Other Relationship Allergies bismuth subsalicylate [From Pepto-Bismol] Adverse Reaction (Verified 05/20/23 15:15) Vomiting seafood Adverse Reaction (Verified 05/20/23 15:15) Vomiting HPI follow up Colitis HPI Details Assessment & Plan (1) Diarrhea: Code(s): R19.7 - Diarrhea, unspecified (2) Transaminitis: Code(s): R74.01 - Elevation of levels of liver transaminase levels Plan She had a sudden on set of diarrhea after Thanksgi, and per her report my doctor told me I may have gluten problems, so I stopped eating this but then I started eating gluten free products but this made my stomach hurt more. She would have diarrhea about 3 times a day at times watery and at times liquid mixed wioth solid stools. At times she would see blood with BM's at times seeing blood clots and at times filling the bowel red occurring 2-3 times a week. She would have pain across the lower abdomen 10/10 when she presented to the ER, but was 5-6/10 prior to this. Prior to this her bowels were normal and formed. No known FHX of diarrheal syndromes or food allergies. She cannot identify any other diet changes except for the gluten free foods prior to the onset of symptoms, she also did not have any change in medications and there were no known similar symptoms in any family members or contacts. There is no family history of gallbladder disease known although she does find fatty foods also will cause cramping and upset her stomach. She only experiences nausea when she takes iron on empty stomach, she may have had some subjective chills with the onset of symptoms but no measured fever. She lost about 15 lb after the diagnosis of colitis because she was eating a very limited diet. She has been able to expand her diet better recently but still finds that she has trouble with things like green beans and lettuce. She has had a intermittent cough that started a little bit after the onset of her diarrheal symptoms. Now she is not having any pain and her BM's are soft stools. Were going to get celiac testing, a RAST allergen panel, and because of her marked transaminitis (which could be due to gluten enteropathy) were going to get general testing to make sure that there is no autoimmune or other problem affecting her liver. She also had a very high stool calprotectin but this is just a marker of inflammation in the bowel and is not necessarily indicative of IBD except in the face of other corroborating pieces of evidence. We did discuss the fact that we may progress to colonoscopy depending on how she does clinically and with the results of these tests show. We will get [facility] IBD panel to see if she has the genetic tendency towards this. ROV 3 weeks. Orders: Orders Liver Panel Today R19.7 - Diarrhea, unspecified, R74.0 1 - Elevation of l evels of liver tra nsaminase levels Mitochondrial Anti body Today R19.7 - Diarrhea, unspecified, R74.0 1 - Elevation of l evels of liver tra nsaminase levels Rast Allergen Today R19.7 - Diarrhea, unspecified, R74.0 1 - Elevation of l evels of liver tra nsaminase levels Transglutaminase I gA Today R19.7 - Diarrhea, unspecified, R74.0 1 - Elevation of l evels of liver tra nsaminase levels Transglutaminase A b IgG Today R19.7 - Diarrhea, unspecified, R74.0 1 - Elevation of l evels of liver tra nsaminase levels Hepatitis A,B,C Pr ofile Today R19.7 - Diarrhea, unspecified, R74.0 1 - Elevation of l evels of liver tra nsaminase levels HIV Ab/Ag Today R19.7 - Diarrhea, unspecified, R74.0 1 - Elevation of l evels of liver tra nsaminase levels Gamma Glutamyl Tra nspeptidase Today R19.7 - Diarrhea, unspecified, R74.0 1 - Elevation of l evels of liver tra nsaminase levels Ferritin Today R19.7 - Diarrhea, unspecified, R74.0 1 - Elevation of l evels of liver tra nsaminase levels Gliadin Ab Panel Today R19.7 - Diarrhea, unspecified, R74.0 1 - Elevation of l evels of liver tra nsaminase levels Smooth Muscle Anti body Today R19.7 - Diarrhea, unspecified, R74.0 1 - Elevation of l evels of liver tra nsaminase levels TSH reflex Free T4 Today R19.7 - Diarrhea, unspecified, R74.0 1 - Elevation of l evels of liver tra nsaminase levels C Reactive Protein Today R19.7 - Diarrhea, unspecified, R74.0 1 - Elevation of l evels of liver tra nsaminase levels DENNIS Reflex Titer a nd Pattern Today R19.7 - Diarrhea, unspecified, R74.0 1 - Elevation of l evels of liver tra nsaminase levels Alpha Fetoprotein Today R19.7 - Diarrhea, unspecified, R74.0 1 - Elevation of l evels of liver tra nsaminase levels [facility] IBD SGI Today R19.7 - Diarrhea, unspecified LABS: Laboratory Tests 04/05/23 12:45 Total Bilirubin 0.2 Direct Bilirubin < 0.2 GGT 65 H AST 28 ALT 36 H Alkaline Phosphata se 103 C-Reactive Protein 0.42 Alpha Fetoprotein 3.1 TSH 3.44 DENNIS Screen NEGATIVE Anti-Mitochondrial Ab NEGATIVE Anti-Smooth Muscle Ab <20 Tiss Transglutamin IgG <1.0 Tiss Transglutamin IgA <1.0 Anti-Gliadin IgG A b <1.0 Hepatitis A IgM Ab Nonreactive Hep Bs Antigen Negative Hep Bs Antibody NONREACTIVE Hep B Core Total A b Nonreactive Hepatitis C Ab (EI A) Nonreactive HIV 1&2 Ab/P24 Ag 4thGn Nonreactive Preometheus panel CONSITENT WITH IBD/UC RAST NOT RETURNED. TODAY'S VISIT Despite the genetic question of IBD, her symptoms have all greatly improved with going gluten free so this is most likely celiac disease. However, giving the exacerbating remitting nature of IBD they were let know that this is a possibility and we will keep an eye on this. Her tissue transglutaminase was not elevated but she had been off gluten already by the time we do the blood work. She had a very high stool calprotectin in that could have been triggered by severe celiac reaction so again we have to keep an open mind. Since being off of gluten her transaminases have significantly decreased and this also could be a sign of gluten enteropathy. For now she is quite satisfied with her progress and I will see her again in 6 months. She is encouraged that if the diarrhea should return despite being gluten free to call my office. [facility] Medical History No pertinent past medical history Surgical History No pertinent past surgical history Social History Alcohol intake: never Patient Tobacco Use Status: Never used Tobacco Review of Systems ENT Reports Normal hearing present Neuro Reports Normal hearing present and Denies Abnormal speech present Physical Exam Vital Signs: Last Vital Signs Pulse 88 05/20/23 15:21 BP 118/62 05/20/23 15:21 BMI result Body Mass Index 36.3 Const General: cooperative, no acute distress, well developed and well groomed Nutritional Appearance: well nourished and obese Orientation/consciousness: oriented to person, oriented to place and oriented to time Limitations: No language barrier HEENT Head: Yes normocephalic and Yes atraumatic Eyes General: appearance normal, both eyes and all related structures Pupils: Equal, round and reactive pupils present Neck Neck: Yes normal visual inspection and Yes no lymphadenopathy Thyroid: Thyroid normal Resp Effort & Inspection: normal respiratory effort and able to speak in complete sentences Auscultation: clear to auscultation bilaterally Cardio Rate: regular rate Rhythm: regular rhythm Heart sounds: Normal, physiologic split S2 sound present Peripheral pulses: radial pulses present and posterior tibial pulses present GI Inspection: No distended, Yes Abdominal panniculus present and Yes obesity Palpation (GI): Soft to palpation, nontender, no guarding, not rigid and No hepatosplenomegaly present Percussion: Yes normal to percussion Auscultation: normal bowel sounds Rectal Exam - Female: deferred Skin General skin exam: no rashes or lesions noted, turgor normal, skin not dry, no jaundice, No spider nevi and no striae Rashes: no rashes Nails: normal Neuro General: oriented to person, oriented to place and oriented to time Cranial nerves: Yes Equal, round and reactive pupils present and Yes Normal hearing present Speech: No Abnormal speech present Extrem General: Yes normal to inspection, No clubbing, No cyanosis and No edema Psych Appearance: grossly normal and well kempt Mental Status: mental status grossly normal Speech and movement: Normal speech and movement present Affect: normal affect Attitude: cooperative Thought process: Normal thought process present and not confabulating Thought content: Normal thought content present Insight: Fair insight present (Psych) Judgement: Fair judgement present (Psych) Results Reviewed Results Reviewed: Laboratory Tests 04/05/23 12:45 Total Bilirubin 0.2 Direct Bilirubin < 0.2 GGT 65 H AST 28 ALT 36 H Alkaline Phosphatase 103 C-Reactive Protein 0.42 Alpha Fetoprotein 3.1 TSH 3.44 DENNIS Screen NEGATIVE Anti-Mitochondrial Ab NEGATIVE Anti-Smooth Muscle Ab <20 Tiss Transglutamin IgG <1.0 Tiss Transglutamin IgA <1.0 Anti-Gliadin IgG Ab <1.0 Hepatitis A IgM Ab Nonreactive Hep Bs Antigen Negative Hep Bs Antibody NONREACTIVE Hep B Core Total Ab Nonreactive Hepatitis C Ab (EIA) Nonreactive HIV 1&2 Ab/P24 Ag 4thGn Nonreactive Preometheus panel CONSITENT WITH IBD/UC RAST NOT RETURNED. Assessment & Plan Assessment & Plan (1) Celiac disease: Code(s): K90.0 - Celiac disease (2) Elevated fecal calprotectin: Comment: Also had a genetic screen consistent with IBD, but this needs to be taken with a grain of salt as this could be related to gluten sensitivity as well Code(s): R19.5 - Other fecal abnormalities Plan Despite the genetic question of IBD, her symptoms have all greatly improved with going gluten free so this is most likely celiac disease. However, giving the exacerbating remitting nature of IBD they were let know that this is a possibility and we will keep an eye on this. Her tissue transglutaminase was not elevated but she had been off gluten already by the time we do the blood work. She had a very high stool calprotectin in that could have been triggered by severe celiac reaction so again we have to keep an open mind. Since being off of gluten her transaminases have significantly decreased and this also could be a sign of gluten enteropathy. For now she is quite satisfied with her progress and I will see her again in 6 months. She is encouraged that if the diarrhea should return despite being gluten free to call my office. Coding Level of Care Code Est Pt Level 3 (73408) Diagnoses Celiac disease K90.0 Elevated fecal calprotectin R19.5
[2023-05-20 15:21] VITALS: BP 118/62; PULSE 88; BMI 36.3
== END 2023-05-20 15:40 | disposition home or self-care (01) ==
PROVIDERS: PCP Nurse Practitioner Family; Visit Provider Nurse Practitioner
DX: K90.0 Celiac disease (principal); R19.5 Other fecal abnormalities
CPT/HCPCS: 99213

== ENCOUNTER → 2023-05-20 15:03 | Outpatient (BNVA) | payer MEDICARE, MEDICAID, SELFPAY | PROVIDERS: PCP Nurse Practitioner Family; Visit Provider Nurse Practitioner | DX: K90.0 Celiac disease (principal); R19.5 Other fecal abnormalities | CPT/HCPCS: 99212 ==

== ENCOUNTER 2024-01-25 12:48 | Outpatient (AMB) | payer MEDICARE, MEDICAID, SELFPAY ==
--- NOTE | 2024-01-25 12:54 | MHC.OFFVIS ---
Vital Signs 01/25/24 12:58 Height 5 ft 1 in Weight 207 lb 3.752 oz BMI 39.2 BP 93/43 L Blood Pressure Location Lt brachial Position Sitting Pulse 82 Intake Visit Reasons: r/s from 11/17 Intake Note: Patient in office today in 6 months follow up of celiac disease. CC: Patient denies having any new GI symptoms or concerns today. Practice Assistant Required: No Allergies bismuth subsalicylate [From Pepto-Bismol] Adverse Reaction (Verified 01/25/24 13:00) Vomiting seafood Adverse Reaction (Verified 01/25/24 13:00) Vomiting HPI HPI r/s from 11/17: Details: Assessment & Plan (1) Celiac disease: Code(s): K90.0 - Celiac disease (2) Elevated fecal calprotectin: Comment: Also had a genetic screen consistent with IBD, but this needs to be taken with a grain of salt as this could be related to gluten sensitivity as well Code(s): R19.5 - Other fecal abnormalities Plan Despite the genetic question of IBD, her symptoms have all greatly improved with going gluten free so this is most likely celiac disease. However, giving the exacerbating remitting nature of IBD they were let know that this is a possibility and we will keep an eye on this. Her tissue transglutaminase was not elevated but she had been off gluten already by the time we do the blood work. She had a very high stool calprotectin in that could have been triggered by severe celiac reaction so again we have to keep an open mind. Since being off of gluten her transaminases have significantly decreased and this also could be a sign of gluten enteropathy. For now she is quite satisfied with her progress and I will see her again in 6 months. She is encouraged that if the diarrhea should return despite being gluten free to call my office. TODAY'S VISIT She continues to do well on her Celiac diet. SInce she has done well she does not need to continue to follow up with GI, but she is welcome to return if sx return. [facility] Medical History No pertinent past medical history Surgical History No pertinent past surgical history Social History Alcohol intake: never Patient Tobacco Use Status: Never used Tobacco Review of Systems Const Denies fatigue, Denies fever(s), Denies night sweats, Denies poor appetite and Denies weight loss ENT Reports Normal hearing present, Denies dental pain, Denies dysphagia, Denies hearing loss, Denies mouth pain, Denies odynophagia, Denies throat swelling, Denies tongue swelling and Reports other (Dentition adequate) Card Reports no additional complaints Resp Reports no additional complaints GI Details: Denies abdominal pain, Denies melena, Denies bloating, Denies hematochezia, Denies constipation, Denies GI cramping, Denies dysphagia, Denies excessive flatus, Denies early satiety, Denies heartburn, Reports diarrhea, Denies nausea, Denies odynophagia, Denies vomiting and Denies hematemesis Skin/Breast Denies pruritus, Denies lesions, Denies rash and Denies jaundice Neuro Reports Normal hearing present and Denies Abnormal speech present Endo Denies fatigue Aller/Immun Denies throat swelling and Denies tongue swelling Physical Exam Vital Signs: Last Vital Signs Pulse 82 01/25/24 12:58 BP 93/43 L 01/25/24 12:58 BMI result Body Mass Index 39.2 Const General: cooperative, no acute distress, well developed and well groomed Nutritional Appearance: well nourished and obese Orientation/consciousness: oriented to person, oriented to place and oriented to time Limitations: No language barrier HEENT Head: Yes normocephalic and Yes atraumatic Eyes General: appearance normal, both eyes and all related structures Pupils: Equal, round and reactive pupils present Neck Neck: Yes normal visual inspection and Yes no lymphadenopathy Thyroid: Thyroid normal Resp Effort & Inspection: normal respiratory effort and able to speak in complete sentences Auscultation: clear to auscultation bilaterally Cardio Rate: regular rate Rhythm: regular rhythm Heart sounds: Normal, physiologic split S2 sound present Peripheral pulses: radial pulses present and posterior tibial pulses present GI Inspection: No distended, Yes Abdominal panniculus present and Yes obesity Palpation (GI): Soft to palpation, nontender, no guarding, not rigid and No hepatosplenomegaly present Percussion: Yes normal to percussion Auscultation: normal bowel sounds Rectal Exam - Female: deferred Skin General skin exam: no rashes or lesions noted, turgor normal, skin not dry, no jaundice, No spider nevi and no striae Rashes: no rashes Nails: normal Neuro General: oriented to person, oriented to place and oriented to time Cranial nerves: Yes Equal, round and reactive pupils present and Yes Normal hearing present Speech: No Abnormal speech present Extrem General: Yes normal to inspection, No clubbing, No cyanosis and No edema Psych Appearance: grossly normal and well kempt Mental Status: mental status grossly normal Speech and movement: Normal speech and movement present Affect: normal affect Attitude: cooperative Thought process: Normal thought process present and not confabulating Thought content: Normal thought content present Insight: Good insight present (Psych) Judgement: Good judgement present (Psych) Assessment & Plan Assessment & Plan (1) Celiac disease: Code(s): K90.0 - Celiac disease Category: Medical (2) Elevated fecal calprotectin: Comment: Also had a genetic screen consistent with IBD, but this needs to be taken with a grain of salt as this could be related to gluten sensitivity as well Code(s): R19.5 - Other fecal abnormalities Category: Medical Plan She continues to do well on her Celiac diet. SInce she has done well she does not need to continue to follow up with GI, but she is welcome to return if sx return. Coding Level of Care Code Est Pt Level 3 (15645) Diagnoses Celiac disease K90.0 Elevated fecal calprotectin R19.5
[2024-01-25 12:58] VITALS: BP 93/43; PULSE 82; BMI 39.2
== END 2024-01-25 13:40 | disposition home or self-care (01) ==
LOC: HO.HGI 12:48
PROVIDERS: PCP Nurse Practitioner Family; Visit Provider Nurse Practitioner
DX: K90.0 Celiac disease (principal); R19.5 Other fecal abnormalities
CPT/HCPCS: 99213

== ENCOUNTER → 2024-01-25 12:48 | Outpatient (BNVA) | payer MEDICARE, MEDICAID, SELFPAY | PROVIDERS: PCP Nurse Practitioner Family; Visit Provider Nurse Practitioner | DX: K90.0 Celiac disease (principal); R19.5 Other fecal abnormalities | CPT/HCPCS: 99212 ==